=== PATIENT | female | born 2000 | race Caucasian/White ===

== ENCOUNTER 2021-10-09 18:08 | Emergency (ER) | payer MEDICAID ==
[2021-10-09] MEDS ORDERED: Take Home: Doxycycline 100 MG Tab, 4 Tab Pack PO ONE (18:24)
== END 2021-10-09 18:42 | disposition home or self-care (01) ==
LOC: CC.ED 18:08
DX: S70.361A Insect bite (nonvenomous), right thigh, initial encounter (principal); Z88.1 Allergy status to other antibiotic agents; W57.XXXA Bitten or stung by nonvenomous insect and other nonvenomous arthropods, initial encounter
CPT/HCPCS: 99282; 99283; A9270-GY

== ENCOUNTER 2022-07-16 20:24 | Emergency (ER) | payer MEDICAID ==
[2022-07-16] MEDS ORDERED: Codeine/guaiFENesin 10-100 MG/5 ML Syrup 5 ML Cup PO ONE (20:42)
[2022-07-16] MEDS ORDERED: Take Home: predniSONE 20 MG, 2 Tab Pack PO ONE (20:42)
== END 2022-07-16 20:55 | disposition home or self-care (01) ==
LOC: CC.ED 20:24
DX: J06.9 Acute upper respiratory infection, unspecified (principal); Z88.1 Allergy status to other antibiotic agents
CPT/HCPCS: 99283; A9270-GY; J7512

== ENCOUNTER 2024-04-08 10:55 | Day surgery (SDC) | payer OTHER ==
[2024-04-08] MEDS: Lactated Ringers 1,000 ML IV SCH (11:15)
[2024-04-08] MEDS ORDERED: Ketamine 200 MG/20 ML MDV ONE (11:35)
[2024-04-08] MEDS ORDERED: Flumazenil 0.1 MG/ML 5 ML MDV ONE (11:35)
[2024-04-08] MEDS ORDERED: Propofol 200 MG/20 ML SDV ONE (11:35)
[2024-04-08] MEDS ORDERED: Midazolam 1 MG/ML 2 ML SDV ONE (11:35)
[2024-04-08] MEDS ORDERED: fentaNYL 50 MCG/ML SDV ONE ×2 (11:35)
== END 2024-04-08 13:11 | disposition home or self-care (01) ==
LOC: CC.SDS 10:55
PROVIDERS: ATTEND Family Medicine
DX: K59.00 Constipation, unspecified (principal); Z88.1 Allergy status to other antibiotic agents; Z88.8 Allergy status to other drugs, medicaments and biological substances; Z79.899 Other long term (current) drug therapy
CPT/HCPCS: 36415; 84703; J2250; J2704; J3010; J3490; J7120